=== PATIENT | female | born 1955 | race Caucasian/White ===

== ENCOUNTER 2017-09-26 10:45 | Emergency (ER) | payer MEDICARE, MEDICAID ==
[~2017-09-26] VITALS: Ht 157.5 cm; Wt 81.8 kg
[~2017-09-26 10:45] MED LIST: ABILIFY 10MG TA10 MG PO; AMBIEN 10MG10 MG PO; AMBIEN10 MG PO; ARTANE 2MG2 MG PO; ASPIRIN 81M81 MG/TA2 PO; ATIVAN; ATIVAN 0.50.5 MG/TAB PO; BENZTROPINE MESY1 MG PO; BETAPACE80 MG PO; CALCIUM CITRATE1 TA1 PO; CARDIZEM CD 12120 MG PO; CELEXA 20MG20 MG/TAB PO; CELEXA10 MG PO; CELEXA40 MG PO; CITALOPRAM40 MG PO; CLINDAMYCIN300 MG PO; COGENTIN 2MG2 MG/TA1 PO; COLACE 100100 MG/CAP PO; COPEGUS200 MG PO; DAILY VITE1 TA1 PO; DIABETA; DOCUSATE CALCI100 MG PO; DOCUSATE SODIU100 MG PO; DOCUSATE100 MG PO; FENOFIBRATE MI200 MG PO; FENTANYL 50MCG; FENTANYL 50MCG TOP; FENTANYL 50MCG TP; FERRATE325 MG PO; GLUCOPHAGE500 MG/TAB PO; GLYBURIDE2.5 MG PO; IBU400 MG PO; IMODIUM 2MG CAPS2 MG PO; IRON325 M1 PO; JANUVIA 100MG100 MG PO; K-DUR 2020 MEQ PO; KLONOPIN 0.5MG0.5 MG PO; KLONOPIN0.5 MG PO; LEVOTHROID0.125 MG PO; LEVOTHYROXINE0.15 MG PO; LEXAPRO 10MG10 MG PO; LISINOPRIL10 MG PO; LOFIBRA200 MG PO; LOFIBRA54 MG PO; LOPRESSOR 550 MG/TAB PO; LORTAB 7.5/5001 TAB; LORTAB 7.5/5001 TAB PO; MAG OXIDE; MAG-OX 400400 MG PO; MAG-OX 400400 MG/TAB PO; METFORMIN; METFORMIN500 MG PO; METOCLOPRAMIDE5 MG PO; METOPROLOL TART25 MG PO; METOPROLOL XL; METOPROLOL25 MG PO; MILK OF MA400 MG/5 M PO; MIRALAX PA17 GM/Dose PO; MOTRIN 800800 MG/TAB PO; MOTRIN600 MG PO; MYLANTA 150 ML150 M1 PO; NAPROSYN500 MG PO; NEXIUM PO; OXYCODONE H5 MG/5 ML PO; OXYCODONE5 M1; PEGASYS180 MCG/0. MR; PEGASYS180 MCG/ML IM; PERCOCET 325 MG1 TAB PO; PLAVIX 75MG TAB75 MG PO; PRILOSEC 20MG20 MG PO; PRILOSEC10 MG PO; PRINIVIL10 MG PO; RIBASPHERE200 MG PO; RIBAVIRIN200 MG PO; RISPERDAL 1M1 MG/TAB PO; RISPERDAL 2M2 MG/TAB PO; RISPERDAL2 MG PO; SENNA-S 50 MG-81 TAB PO; SENNA1 TAB PO; SEROQUEL 200MG200 MG PO; SEROQUEL XR300 MG PO; SEROQUEL200 MG PO; SUDAFED30 MG PO; SYNTHROID 0.10.15 MG PO; SYNTHROID0.088 MG/T PO; SYNTHROID0.1 MG/TAB PO; SYNTHROID0.125 MG/T PO; TOPROL XL 25MG25 MG PO; TRICOR 48MG48 MG PO; TRICOR200 MG PO; TYLENOL EXTRA500 M1 PO; UNABLE; VITAMIN D 1001000 IU PO; VITAMIN D1000 IU PO; VITAMIN D5000 IU PO; ZOLPIDEM10 MG PO
[2017-09-26 10:55] VITALS: TEMP 97.9
[2017-09-26 11:40] LABS: BASO % 0.4 % (0.0-2.0); EOS # 0.2 (0.0-0.7); EOS % 2.4 % (0-4.0); GRAN # 5.1 (1.4-6.5); GRAN % 65.6 % (42.2-75.2); HEMATOCRIT 44.6 % (37.0-47.0); HEMOGLOBIN 14.8 g/dl (12.5-16.0); LYMPH % 24.9 % (20.0-51.0); MEAN CELL VOLUME 96 fl (80.0-100.0); MEAN CORPUSCULAR HEMOGLOBIN 32 pg (27.0-31.0); MEAN CORPUSCULAR HGB CONC 33 g/dl (33.0-37.0); MEAN PLATELET VOLUME 9.4 fl (7.4-10.4); MONO # 0.5 (0.1-0.6); MONO % 6.3 % (1.7-9.3); PLATELET COUNT 186 K/mm3 (130-400); RED BLOOD COUNT 4.65 M/mm3 (4.10-5.30); REDCELL DISTRIBUTION WIDTH-CV 12.5 % (11.5-14.5)
[2017-09-26 11:57] LABS: TROPONIN-I < 0.012 ng/mL (0.000-0.034)
[2017-09-26 11:58] LABS: ALANINE AMINOTRANSFERASE 14 U/L (9-52); ALBUMIN 3.9 gm/dL (3.5-5.0); ALKALINE PHOSPHATASE 162 U/L (50-136); ANION GAP 9 mmol/L (7-16); AST,SGOT 24 U/L (15-37); BILIRUBIN,TOTAL 0.4 mg/dL (0.0-1.0); BLOOD UREA NITROGEN 18 mg/dL (7-17); C-REACTIVE PROTEIN 0.6 mg/dL (0.0-0.9); CALCIUM 9.9 mg/dL (8.4-10.2); CARBON DIOXIDE 27 mmol/L (22-30); CHLORIDE 105 mmol/L (98-107); CREATININE, serum 0.91 mg/dL (0.52-1.25); GLUCOSE 140 mg/dL (74-106); LIPASE 134 U/L (23-300); POTASSIUM 3.9 mmol/L (3.4-5.0); SODIUM 141 mmol/L (137-145); TOTAL PROTEIN 7.4 gm/dL (6.4-8.2)
[2017-09-26] MEDS ORDERED: FLEXERIL 1010 MG/TAB PO (14:00)
[2017-09-26] MEDS ORDERED: NORCO 325 MG-51 TAB PO (14:00)
[2017-09-26 15:13] VITALS: BP 137/86; PULSE 75
== END 2017-09-26 15:15 | disposition home or self-care (01) ==
LOC: COL.ER 10:45
PROVIDERS: Emergency Medicine
DX: E11.9 Type 2 diabetes mellitus without complications (principal); E03.9 Hypothyroidism, unspecified; F25.0 Schizoaffective disorder, bipolar type; Z79.82 Long term (current) use of aspirin; Z79.02 Long term (current) use of antithrombotics/antiplatelets
CPT/HCPCS: J2060; J7030